=== PATIENT | female | born 1980 | race Caucasian/White ===

== ENCOUNTER 2018-08-29 20:12 | Emergency (ER) | payer OTHER ==
[2018-08-29] MEDS: SOD CHLORIDE 0.9% 1,000 ML IV (22:49)
[2018-08-29 23:08] LABS: ADD MAN DIFF? NO
[2018-08-29 23:10] LABS: BASOPHILS % 0.6 % (0.0-2.0); EOSINOPHILS % 0.6 % (0.0-7.0); HEMATOCRIT 38.1 % (37.0-47.0); HEMOGLOBIN 12.7 g/dl (12.0-16.0); LYMPHOCYTES # 1.4 10^3/ul (0.8-2.9); LYMPHOCYTES % 22.8 % (15.0-51.0); MEAN CORPUSCULAR HEMOGLOBIN 29.4 pg (29.0-33.0); MEAN CORPUSCULAR HGB CONC 33.3 g/dl (32.0-37.0); MEAN CORPUSCULAR VOLUME 88.2 fl (82.0-101.0); MEAN PLATELET VOLUME 9.6 fl (7.4-10.4); MONOCYTE # 0.4 10^3/ul (0.3-0.9); MONOCYTES % 5.9 % (0.0-11.0); NEUTROPHIL # 4.4 10^3/ul (1.6-7.5); NEUTROPHILS % 69.9 % (39.0-77.0); PLATELET COUNT 227 10^3/UL (140-415); RED BLOOD COUNT 4.32 10^6/ul (4.20-5.40); RED CELL DISTRIBUTION WIDTH 11.9 % (11.5-14.5)
[2018-08-29 23:10] LABS: WHITE BLOOD COUNT 6.2 10^3/ul (4.8-10.8)
[2018-08-29 23:30] LABS: ANION GAP 13 (8-16); BLOOD UREA NITROGEN 16 mg/dl (7-20); CALCIUM 9.1 mg/dl (8.4-10.2); CARBON DIOXIDE 23 mmol/L (21-31); CHLORIDE 109 mmol/L (97-110); CREATININE 0.78 mg/dl (0.44-1.00); GLUCOSE 96 mg/dl (70-220); POTASSIUM 3.5 mmol/L (3.5-5.1); SODIUM 141 mmol/L (135-144)
[2018-08-29 23:31] LABS: INR 0.99; PROTIME 13.2 Sec (11.9-14.9)
[2018-08-29] MEDS: morphine 4 MG/ML VIAL IV (23:35)
[2018-08-29] MEDS: ONDANSETRON 4 MG INJ IV (23:35)
[2018-08-30] MEDS: METHYLPRED. NA SUCC 500 MG in DEXTROSE 5% 50 ML IVPB (02:12)
== END 2018-08-30 02:50 | disposition left against medical advice (07) ==
LOC: E/R 08-30 02:50
DX: G83.12 Monoplegia of lower limb affecting left dominant side (principal); D49.2 Neoplasm of unspecified behavior of bone, soft tissue, and skin; R33.9 Retention of urine, unspecified; M79.605 Pain in left leg; Z85.3 Personal history of malignant neoplasm of breast
CPT/HCPCS: 36415; 70551; 72146; 72148; 80048; 85025; 85610; 85730; 99284-25